=== PATIENT | male | born 1965 | race Caucasian/White ===

== ENCOUNTER 2017-04-09 02:47 | Emergency (ER) | payer MEDICAID ==
[~2017-04-09] VITALS: Ht 182.9 cm; Wt 95.3 kg
[2017-04-09 03:28] VITALS: BP 160/103
[2017-04-09] MEDS ORDERED: TETANUS-DIPTH-ACEL PERTUSSIS 0.5ML SYRG IM ONE (04:00)
[2017-04-09] MEDS ORDERED: MEPERIDINE HCL (50 MG/ML) 1 ML VIAL IM ONE (04:00)
[2017-04-09] MEDS ORDERED: ONDANSETRON ODT 4 MG TAB PO ONE (04:00)
[2017-04-09] MEDS ORDERED: LIDOCAINE 2%HCL (LOCAL ANESTH.) INJ 20ML MDV ONE (04:24)
[2017-04-09] MEDS ORDERED: cefTRIAXone SOD 1,000 MG VL ONE (05:44)
[2017-04-09] MEDS ORDERED: cefTRIAXone W LIDOCAINE 1 GM IM IM ONE (05:45)
[2017-04-09] MEDS ORDERED: LIDOCAINE 2%HCL (LOCAL ANESTH.) INJ 20ML MDV IJ ONE (06:00)
[2017-04-09] MEDS ORDERED: BACITRACIN TOP OINT 1 UD PKG TOP ONE (06:15)
== END 2017-04-09 06:31 | disposition home or self-care (01) ==
LOC: ER 02:50
DX: S61.214A Laceration without foreign body of right ring finger without damage to nail, initial encounter (principal); S62.604A Fracture of unspecified phalanx of right ring finger, initial encounter for closed fracture; F17.210 Nicotine dependence, cigarettes, uncomplicated; W20.8XXA Other cause of strike by thrown, projected or falling object, initial encounter; Y93.89 Activity, other specified; Y92.89 Other specified places as the place of occurrence of the external cause; Y99.8 Other external cause status
CPT/HCPCS: 12005; 73140; 90471; 90715; 96372; 99284; J0696; J2175; Q0162

== ENCOUNTER 2017-04-11 16:19 | Emergency (ER) | payer MEDICAID ==
[~2017-04-11] VITALS: Ht 182.9 cm; Wt 95.3 kg
[2017-04-11 16:45] VITALS: BP 143/68
== END 2017-04-11 20:55 | disposition home or self-care (01) ==
LOC: ER 16:22
DX: S61.214D Laceration without foreign body of right ring finger without damage to nail, subsequent encounter (principal); Z48.02 Encounter for removal of sutures

== ENCOUNTER 2024-05-21 07:59 | Inpatient (IN) | payer MEDICAID ==
[~2024-05-21] VITALS: Ht 180.3 cm; Wt 90.7 kg
--- NOTE | 2024-05-21 09:09 | ED.PDOC ---
Musculoskeletal HPI Comments 59 year old male presents to the ED with a chief complaint of bilateral foot pain onset 2 months. Patient states he has been experiencing bilateral foot pain with swelling for the past 2 months, worsening past 3 days. He noticed changes in color, dark purple/ red, LT foot is cold to touch with a burning sensation around the toes, RT foot is slightly more swollen than LT. He has been following up with Public Health Outreach Worker, with no diagnosis or treatment given. PMHx HTN. Denies chest pain, shortness of breath, fever, chills, nausea, vomiting, diarrhea, headache. No other symptoms or modifying factors present at this time. Chief Complaint: Lower Extremity Time Seen by MD: 08:48 Primary Care Provider: unknown Reviewed Notes: Medications, Allergies Allergies: Coded Allergies: NO KNOWN ALLERGIES (Unverified , 04/09/17) Information Source: Patient, Spouse Mode of Arrival: Ambulatory Location: Bilateral Extremity Location: Foot, Hand Timing: Months Prehospital treatment: None Severity: Moderate Able to Move Extremity: Yes Bear Weight: Limited Pain: Moderate Mechanism: Spontaneous Circumstances: Spontaneous Onset of Symptoms: Spontaneous Symptoms: Swelling, Pain, Erythema Associated signs and symptoms: Swelling, Hand pain, Foot pain Past Medical History PAST MEDICAL HISTORY: HTN, Denies Surgical History: Denies all surgeries Family History Family History: Unknown Social History Smoker: Cigarettes Alcohol: Denies ETOH Use Drugs: Denies Drug Use Lives In: Home Musculoskeletal: reports: others (bilateral feet swelling, pain, change in color ) Integumetry: reports: change in color Physical Exam General Appearance: No Apparent Distress, Normal HEENT: Normal ENT Inspection, Pharynx Normal, TMs Normal Neck: Full Range of Motion, Non-Tender, Normal, Normal Inspection Respiratory: Chest Non-Tender, Lungs Clear, No Accessory Muscle Use, No Respiratory Distress, Normal Breath Sounds Cardiovascular: No Edema, No JVD, No Murmur, No Gallop, Normal Peripheral Pulses, Regular Rate/Rhythm Breast Exam: Deferred Gastrointestinal: No Organomegaly, Non Tender, No Pulsatile Mass, Normal Bowel Sounds, Soft Genitalia: Deferred Pelvic: Deferred Rectal: Deferred Extremities: Slow capillary refill (bilateral hands and feet) Musculoskeletal : Apperance: Normal Neurologic: Alert, customer engagement manager II-XII nml as Tested, No Motor Deficits, Normal Affect, Normal Mood, No Sensory Deficits Cerebellar Function: Normal Reflexes: Normal Skin: Dry, Normal Color, Warm Lymphatic: No Adenopathy Was a procedure done? Was a procedure done?: No Differential Diagnosis EXT Differential Diagnosis: Cellulitis, Deep Vein Thrombosis, Other (Vascular issue) X-Ray, Labs, Meds, VS Vital Signs Date Time Temp Pulse Resp B/P (MAP) Pulse Ox O2 Delivery O2 Flow Rate FiO2 05/21/24 10:02 98.1 108 18 144/102 (116) 93 98.1 05/21/24 10:00 108 18 97 Room Air* 0 21 05/21/24 08:27 98.8 111 18 147/93 (111) 95 98.8 Lab Test 05/21/24 09:52 Range/Units White Blood Count 6.6 4.4-10.8 10^3/uL Red Blood Count 5.75 4.5-5.90 10^6/uL Hemoglobin 18.4 H 13.5-17.5 g/dL Hematocrit 53.3 H 41.0-53.0 % Mean Corpuscular Volume 92.7 80.0-100.0 fL Mean Corpuscular Hemoglobin 32.0 28.0-32.0 pg Mean Corpuscular Hemoglobin Concent 34.5 32.0-36.0 g/dL Red Cell Distribution Width 14.6 H 11.8-14.3 % Platelet Count 301 140-450 10^3/uL Mean Platelet Volume 7.2 6.9-10.8 fL Neutrophils (%) (Auto) 72.3 37.0-80.0 % Lymphocytes (%) (Auto) 15.7 10.0-50.0 % Monocytes (%) (Auto) 9.4 0.0-12.0 % Eosinophils (%) (Auto) 1.6 0.0-7.0 % Basophils (%) (Auto) 1.0 0.0-2.0 % Neutrophils # (Auto) 4.8 1.6-8.6 10 ^3/uL Lymphocytes # (Auto) 1.0 0.4-5.4 10 ^3/uL Monocytes # (Auto) 0.6 0-1.3 10 ^3/uL Eosinophils # (Auto) 0.1 0-0.8 10 ^3/uL Basophils # (Auto) 0.1 0-0.2 10 ^3/uL Nucleated Red Blood Cells 0.3 % Prothrombin Time 11.0 9.3-11.8 sec Prothrombin Time INR 1.04 0.9-1.15 Activated Partial Thromboplast Time 27.9 24.5-34.5 SEC Sodium Level 138 136-145 mmol/L Potassium Level 4.3 3.5-5.1 mmol/L Chloride Level 106 98-107 mmol/L Carbon Dioxide Level 25 20-31 mmol/L Anion Gap 7 5-15 Blood Urea Nitrogen 16 9-23 mg/dL Creatinine 1.09 0.700-1.30 mg/dL Glomerular Filtration Rate Calc 78 >90 mL/min BUN/Creatinine Ratio 14.7 10.0-20.0 Serum Glucose 87 74-106 mg/dL Calcium Level 9.9 8.7-10.4 mg/dL Troponin I High Sensitivity 5 </=54 ng/L [place] [id number] Ph: [phone] DIAGNOSTIC IMAGING Diagnostic Imaging Report : [id number] Signed PATIENT: WILLIAM MITCHELL ACCT: [id number] UNIT: [id number] : 1965 LOC: ER ROOM / BED: / AGE / SEX: 59 / M ADM STATUS: REG ER SERVICE [id number] ORDERING PHYSICIAN: LILI MEYER MD PROCEDURE(s): CXRP - CHEST PORTABLE REASON: extremity decreased perfusion ORDER NUMBER(s): [id number], ACCESSION NUMBER(s): [id number] EXAM: XY CHEST PORTABLE Indication: extremity decreased perfusion Technique: Single frontal view of the chest was obtained Comparison: None FINDINGS: Lines and Tubes: None Lungs: No focal consolidation. Pleura: No effusion. No pneumothorax. Cardiomediastinal contours: Unremarkable Bones: No acute osseous abnormality. IMPRESSION: No acute cardiopulmonary disease. ATED BY: TAYLER PEREZ MD DICTATED DATE/TIME: 05/21/241055 SIGNED BY: TAYLER PEREZ MD SIGNED DATE/TIME: 05/21/241055 CC: Time of 1ST Reevaluation: 09:18 Reevaluation 1ST: Unchanged Patient Education/Counseling: Diagnosis, Treatment, Prognosis Family Education/Counseling: Diagnosis, Treatment, Prognosis Additional Information The following tests were ordered, and results were reviewed by me: PTPTT, BMP, CBC, TROP, XY CHEST, CT ANGIO LOWER EXTREMITY W CON Additional Information was gathered from interviewing the following independent historians: I reviewed and agreed with the following test results read by other providers: XY CHEST, CT ANGIO LOWER EXTREMITY W CON I discussed treatment and results with medical personnel and: Patient, Comprehensive systems review obtained and negative except for what is stated in the HPI. Departure 1 Departure Time of Disposition: 12:46 (Patient with worsening pain and what appears to be decreased circulation to his lower extremities. We will admit patient for further workup and expert consultation) Impression: Primary Impression: Lower extremity pain Qualified Codes: M79.604 - Pain in right leg; M79.605 - Pain in left leg Disposition: ADMITTED INPATIENT Admit to: Med Surg Condition: Guarded Critical Care Note Critical Care Time?: No Stability Stability form required: No I personally scribed for LILI MEYER MD ([email or web address]) on 05/21/24 at 09:09. Electronically submitted by Anna Quintero ([email or web address]). I personally scribed for LILI MEYER MD ([email or web address]) on 05/21/24 at 09:22. Electronically submitted by Anna Quintero ([email or web address]). I personally scribed for LILI MEYER MD ([email or web address]) on 05/21/24 at 09:35. Electronically submitted by Anna Quintero ([email or web address]). I personally scribed for LILI MEYER MD ([email or web address]) on 05/21/24 at 11:14. Electronically submitted by Anna Quintero ([email or web address]). LILI MEYER MD May 21, 2024 09:09
[2024-05-21 10:00] VITALS: PULSE 108; RESP 18; O2SAT 97
[2024-05-21 10:47] LABS: Basophils # (auto) 0.1 10 ^3/uL (0-0.2); Eosinophils # (auto) 0.1 10 ^3/uL (0-0.8); Monocytes # (auto) 0.6 10 ^3/uL (0-1.3); Neutrophils # (auto) 4.8 10 ^3/uL (1.6-8.6)
[2024-05-21 10:49] LABS: Chloride 106 mmol/L (98-107); Potassium 4.3 mmol/L (3.5-5.1); Sodium 138 mmol/L (136-145)
[2024-05-21 10:50] LABS: Anion Gap 7 (5-15); Calcium 9.9 mg/dL (8.7-10.4); Carbon Dioxide 25 mmol/L (20-31)
[2024-05-21 10:51] LABS: Eosinophils % (auto) 1.6 % (0.0-7.0); Hematocrit 53.3 % (41.0-53.0); Hemoglobin 18.4 g/dL (13.5-17.5); Lymphocytes % (auto) 15.7 % (10.0-50.0); Mean Corpuscular Hgb Conc. 34.5 g/dL (32.0-36.0); Mean Corpuscular Volume 92.7 fL (80.0-100.0); Monocytes % (auto) 9.4 % (0.0-12.0); Neutrophils % (auto) 72.3 % (37.0-80.0); Nucleated Red Blood Cells % 0.3 %; Platelet Count (auto) 301 10^3/uL (140-450); Red Blood Cells 5.75 10^6/uL (4.5-5.90); Red Cell Distribution Width 14.6 % (11.8-14.3); White Blood Cell 6.6 10^3/uL (4.4-10.8)
[2024-05-21 10:55] LABS: BUN/Creatinine Ratio 14.7 (10.0-20.0); Blood Urea Nitrogen 16 mg/dL (9-23); Glucose 87 mg/dL (74-106)
--- NOTE | 2024-05-21 10:58 | DVH ---
EXAM: XY CHEST PORTABLE Indication: extremity decreased perfusion Technique: Single frontal view of the chest was obtained Comparison: None FINDINGS: Lines and Tubes: None Lungs: No focal consolidation. Pleura: No effusion. No pneumothorax. Cardiomediastinal contours: Unremarkable Bones: No acute osseous abnormality. IMPRESSION: No acute cardiopulmonary disease.
[2024-05-21 11:03] LABS: INR 1.04 (0.9-1.15); Partial Thromboplastin Time 27.9 SEC (24.5-34.5)
[2024-05-21] MEDS: IOHEXOL 350 MG/ML 100ML IJ ONE (11:21)
--- NOTE | 2024-05-21 12:28 | DVH ---
Examination: CT CT ANGIO LOWER EXTREMITY W CLINICAL HISTORY: bilateral decreased circulation to lower extremities Comparison: None Technique: Using helical technique, CT data from the lower abdomen through the toes was obtained duri ng rapid IV contrast infusion of 100 cc Omni 350. The examination was timed to the arterial system to generate a CT angiographic study. 3D images were generated at an independent work station. Dose redu ction techniques included automated exposure control. Radiation Dose Information: CT Dose: CTDI volume is 31 mGy. Dose-length product is 1541 mGy*cm Findings: Limited by poor contrast opacification of the arterial system and motion artifact. Abdominal aorta: Normal caliber, patent WENDY: Patent Right lower extremity: Common iliac artery: Patent External iliac artery: Patent Internal iliac artery: Patent Common femoral artery: Patent Profunda femoral artery: Patent Superficial femoral artery: Patent Popliteal artery: Patent Anterior tibial artery: Patent Peroneal tibial trunk: Patent Peroneal artery: Patent Posterior tibial artery: Patent Dorsalis pedis artery: Patent Left lower extremity: Common iliac artery: Patent External iliac artery: Patent Internal iliac artery: Patent Common femoral artery: Patent Profunda femoral artery: Patent Superficial femoral artery: Patent Popliteal artery: Patent Anterior tibial artery: Patent Peroneal tibial trunk: Patent Peroneal artery: Patent Posterior tibial artery: Patent Dorsalis pedis artery: Patent Pelvis: GI System: Visualized bowel appears unremarkable. Appendix is not definitely identified. Lymph nodes: No lymphadenopathy. Peritoneal cavity and surface: No free fluid. No pneumoperitoneum. Soft Tissues: Normal. Reproductive Organs: Normal. Bones: No acute fracture or aggressive osseous lesion. Impression: Vascular: 1. Limited by poor opacification of the arterial system and motion artifact. No definite hemodynamica lly significant stenosis identified. Right Lower Extremity: 1. Patent inflow 2. Patent outflow 3. Patent 3 vessel runoff Left Lower Extremity: 1. Patent inflow 2. Patent outflow 3. Patent 3 vessel runoff Abdomen/Pelvis: 1. No acute pelvic process. HS:Y
--- NOTE | 2024-05-21 14:54 | DVHHP2 ---
History of Present Illness Reason for Visit: Bilateral foot pain History of Present Illness 59-year-old male past medical history hypertension calcaneus fracture is seeing Podiatry outpatient chief complaint patient states he has been having left foot redness and pain he has been going on for two months now and he has some swel ling. But in the last three days his symptoms got so severe that he had come to the ER for evaluation he states that he has been having some dark purple color to his toes and severe pain in his foot has been feeling with cold feeling and a lot of burning aching sensation to his foot and toes. Patient denies any calf pain no chest pain no shortness with the breath no headache no dizziness. Patient has not seen a vascular surgeon for his issues. When evaluating patient's labs and imaging hemoglobin was 18.4 55.3 otherwise CBC was unremarkable CMP unremarkable troponin was negative CT angio appears without occlusion but we will order vascular consult chest x-ray unremarkable. With these findings we will admit. and ask for vascular consult Past Medical History Hypertension Past Surgical History Calcaneus fracture Family History Reviewed, non-contributory to the management of this case. Past Social History Patient was currently smoking denies drug or alcohol use Review of Systems Constitutional: No: Fever, Chills, Sweats, Weakness, Malaise, Other Eyes: No: Pain, Vision change, Conjunctivae inflammation, Eyelid inflammation, Other, Redness ENT: No: Ear pain, Ear discharge, Nose pain, Nose discharge, Nose congestion, Mouth pain, Mouth swelling, Throat pain, Throat swelling, Other Respiratory: No: Cough, Dry, Shortness of breath, SOB with excertion, Wheezing, Hemoptysis, Pleuritic Pain, Sputum, Wheezing, Other Cardiovascular: No: Chest Pain, Palpitations, Orthopnea, Paroxysmal Noc. Dyspnea, Edema, Lt Headedness, Other Gastrointestinal: No: Nausea, Vomiting, Abdominal Pain, Diarrhea, Constipation, Melena, Hematochezia, Other Genitourinary: No Dysuria, No Frequency, No Incontinence, No Hematuria, No Retention, No Other Musculoskeletal: leg pain, foot pain; No: other, neck pain, shoulder pain, arm pain, back pain, hand pain Skin: No: Rash, Lesions, Jaundice, Bruising, Other Neurological: No: Weakness, Numbness, Incoordination, Change in speech, Confusion, Seizures, Other Allergies: Coded Allergies: NO KNOWN ALLERGIES (Unverified , 04/09/17) Exam Vital Signs Vital Signs Date Time Temp Pulse Resp B/P (MAP) Pulse Ox O2 Delivery O2 Flow Rate FiO2 05/21/24 10:02 98.1 108 18 144/102 (116) 93 98.1 05/21/24 10:00 Room Air* 0 21 General Appearance: Alert, Oriented X3, Cooperative, No acute distress HEENT: Atraumatic, PERRLA, EOMI, Mucous membr. moist/pink Respiratory: Clear to auscultation, Normal air movement Cardiovascular: Regular rate, Normal S1, Normal S2, No murmurs Abdominal: Normal bowel sounds, Soft, No tenderness, No hepatospenomegaly, No masses Extremities: No clubbing, Other (bilateral feet with erythema compartment soft nvi +silt +wiggle +pulse felt ) Skin: No breakdown, No significant lesion Neuro: Normal gait, Normal speech, Strength at 5/5 X4 ext, Normal tone, Sensation intact, Cranial nerves 3-12 NL Psych/Mental Status: Mental status NL, Mood NL Labs/Xrays Cxr unremarkable CT angio lower extremity shows no occlusion I reviewed labs, imaging CT scan abdomen pelvis, EKG and all diagnostic studies on this patient from ED records and the medical chart Labs Test 05/21/24 09:52 Range/Units White Blood Count 6.6 4.4-10.8 10^3/uL Red Blood Count 5.75 4.5-5.90 10^6/uL Hemoglobin 18.4 H 13.5-17.5 g/dL Hematocrit 53.3 H 41.0-53.0 % Mean Corpuscular Volume 92.7 80.0-100.0 fL Mean Corpuscular Hemoglobin 32.0 28.0-32.0 pg Mean Corpuscular Hemoglobin Concent 34.5 32.0-36.0 g/dL Red Cell Distribution Width 14.6 H 11.8-14.3 % Platelet Count 301 140-450 10^3/uL Mean Platelet Volume 7.2 6.9-10.8 fL Neutrophils (%) (Auto) 72.3 37.0-80.0 % Lymphocytes (%) (Auto) 15.7 10.0-50.0 % Monocytes (%) (Auto) 9.4 0.0-12.0 % Eosinophils (%) (Auto) 1.6 0.0-7.0 % Basophils (%) (Auto) 1.0 0.0-2.0 % Neutrophils # (Auto) 4.8 1.6-8.6 10 ^3/uL Lymphocytes # (Auto) 1.0 0.4-5.4 10 ^3/uL Monocytes # (Auto) 0.6 0-1.3 10 ^3/uL Eosinophils # (Auto) 0.1 0-0.8 10 ^3/uL Basophils # (Auto) 0.1 0-0.2 10 ^3/uL Nucleated Red Blood Cells 0.3 % Prothrombin Time 11.0 9.3-11.8 sec Prothrombin Time INR 1.04 0.9-1.15 Activated Partial Thromboplast Time 27.9 24.5-34.5 SEC Sodium Level 138 136-145 mmol/L Potassium Level 4.3 3.5-5.1 mmol/L Chloride Level 106 98-107 mmol/L Carbon Dioxide Level 25 20-31 mmol/L Anion Gap 7 5-15 Blood Urea Nitrogen 16 9-23 mg/dL Creatinine 1.09 0.700-1.30 mg/dL Glomerular Filtration Rate Calc 78 >90 mL/min BUN/Creatinine Ratio 14.7 10.0-20.0 Serum Glucose 87 74-106 mg/dL Calcium Level 9.9 8.7-10.4 mg/dL Troponin I High Sensitivity 5 </=54 ng/L Assessment/Plan Assessment/Plan acute bilateral foot pain acute left foot discoloration ct scan lower ext no occlusion ordered morphine as needed for pain ordered gabapentin ordered vascular consult fu results elevate to help with swelling ordered ceftriaxone for now ordered lovenox for now ordered us to eval for dvt fu results smoker enc abstinence chronic problem htn calcaneus fx seeing by podiatry outpt fen/ppx diet ivf lovenox no gi ppx since hx of gerds or gi bleed plan admit to medicine Plan discussed with: Patient Date of Service: May 21, 2024 Billing Provider: HALIMA THOMPSON DNP Common Visit Codes: [id number] INP/OBS CARE (HIGH) HALIMA THOMPSON DNP May 21, 2024 14:54
[2024-05-21] MEDS ORDERED: NITROGLYCERIN 0.4 MG SL TAB SL PRN (15:45)
[2024-05-21] MEDS ORDERED: DOCUSATE SOD 100 MG CAP PO PRN (15:45)
[2024-05-21] MEDS ORDERED: MORPHINE SULFATE INJ 2 MG/ml SYRG IV PRN (15:45)
[2024-05-21] MEDS ORDERED: ONDANSETRON HCL 4 MG/2 ML VIAL IV PRN (15:45)
[2024-05-21] MEDS: ENOXAPARIN SOD 40 MG/0.4 ML SYRINGE SC SCH (16:59)
[2024-05-21] MEDS: SODIUM CHLORIDE 0.9% 1,000 ML IV SCH (17:37)
[2024-05-21] MEDS: cefTRIAXone 1GM/50ML D5W 50 ML IV ONE (21:15)
[2024-05-21 21:22] LABS: Erythrocyte Sedimentation Rate 1 mm/hr (0-20)
[2024-05-21] MEDS: GABAPENTIN 300 MG CAP PO SCH (21:41)
[2024-05-21 21:56] VITALS: BP 131/87; PULSE 94; RESP 18; TEMP 97.3; O2SAT 97
--- NOTE | 2024-05-21 23:20 | DVH ---
Bilateral lower extremity venous duplex Clinical History: eval for dvt to ble Comparison: None Technique: Duplex Doppler evaluation of the deep venous systems of both lower extremities from the common femora l veins to the popliteal veins including color Doppler and spectral/pulsed waveform analysis was perf ormed. Findings: RIGHT SIDE: The common femoral vein demonstrates appropriate compressibility and waveform variability. There is compressibility/patency of the great saphenous vein at the proximal thigh. The femoral vein demonstrates appropriate compressibility and waveform variability. The deep femoral vein demonstrates appropriate compressibility and waveform variability. The popliteal vein demonstrates appropriate compressibility and waveform variability. There is normal compressibility at the tibioperoneal trunk. LEFT SIDE: The common femoral vein demonstrates appropriate compressibility and waveform variability. There is compressibility/patency of the great saphenous vein at the proximal thigh. The femoral vein demonstrates appropriate compressibility and waveform variability. The deep femoral vein demonstrates appropriate compressibility and waveform variability. The popliteal vein demonstrates appropriate compressibility and waveform variability. There is normal compressibility at the tibioperoneal trunk. Impression: No evidence of right or left femoropopliteal venous thrombosis. Possible mild bilateral inguinal lymphadenopathy.
[2024-05-21 23:54] VITALS: BP 131/87; PULSE 94; RESP 18; TEMP 97.3; O2SAT 97
[2024-05-22 06:57] LABS: Eosinophils # (auto) 0.3 10 ^3/uL (0-0.8); Lymphocytes # (auto) 1.3 10 ^3/uL (0.4-5.4); Monocytes # (auto) 0.5 10 ^3/uL (0-1.3); Neutrophils # (auto) 3.6 10 ^3/uL (1.6-8.6); White Blood Cell 5.7 10^3/uL (4.4-10.8)
[2024-05-22 07:00] LABS: Alanine Aminotransferase 23 U/L (7-40); Alkaline Phosphatase 61 U/L (46-116); Anion Gap 6 (5-15); BUN/Creatinine Ratio 16.2 (10.0-20.0); Basophils # (auto) 0 10 ^3/uL (0-0.2); Basophils % (auto) 0.8 % (0.0-2.0); Bilirubin, Total 0.6 mg/dL (0.2-1.0); Blood Urea Nitrogen 18 mg/dL (9-23); Calcium 9.6 mg/dL (8.7-10.4); Carbon Dioxide 27 mmol/L (20-31); Chloride 105 mmol/L (98-107); Eosinophils % (auto) 5.3 % (0.0-7.0); Glucose 100 mg/dL (74-106); Hematocrit 51.4 % (41.0-53.0); Hemoglobin 17.9 g/dL (13.5-17.5); Lymphocytes % (auto) 21.9 % (10.0-50.0); Mean Corpuscular Hemoglobin 32.2 pg (28.0-32.0); Mean Corpuscular Hgb Conc. 34.8 g/dL (32.0-36.0); Mean Corpuscular Volume 92.5 fL (80.0-100.0); Monocytes % (auto) 8.9 % (0.0-12.0); Neutrophils % (auto) 63.1 % (37.0-80.0); Nucleated Red Blood Cells % 0.9 %; Platelet Count (auto) 261 10^3/uL (140-450); Red Blood Cells 5.55 10^6/uL (4.5-5.90); Red Cell Distribution Width 14.4 % (11.8-14.3); Sodium 138 mmol/L (136-145); Total Protein 6.1 g/dL (5.7-8.2)
[2024-05-22 07:05] LABS: Aspartate Aminotransferase 12 U/L (13-40)
[2024-05-22] MEDS: cefTRIAXone 1GM/50ML D5W 50 ML IV SCH (09:09)
[2024-05-22 10:45] LABS: Hepatitis B Surface Antigen Negative (Negative); Hepatitis C Antibody Negative (Negative)
--- NOTE | 2024-05-22 15:29 | DVHDS2 ---
Discharge Summary Date of Admission May 21, 2024 at 15:44 Date of Discharge: May 22, 2024 Admitting Diagnosis Bilateral foot pain Labs/Diagnostic Data: Laboratory Results Test 05/22/24 06:20 05/21/24 09:52 White Blood Count 5.7 10^3/uL (4.4-10.8) Red Blood Count 5.55 10^6/uL (4.5-5.90) Hemoglobin 17.9 g/dL (13.5-17.5) Hematocrit 51.4 % (41.0-53.0) Mean Corpuscular Volume 92.5 fL (80.0-100.0) Mean Corpuscular Hemoglobin 32.2 pg (28.0-32.0) Mean Corpuscular Hemoglobin Concent 34.8 g/dL (32.0-36.0) Red Cell Distribution Width 14.4 % (11.8-14.3) Platelet Count 261 10^3/uL (140-450) Mean Platelet Volume 7.0 fL (6.9-10.8) Neutrophils (%) (Auto) 63.1 % (37.0-80.0) Lymphocytes (%) (Auto) 21.9 % (10.0-50.0) Monocytes (%) (Auto) 8.9 % (0.0-12.0) Eosinophils (%) (Auto) 5.3 % (0.0-7.0) Basophils (%) (Auto) 0.8 % (0.0-2.0) Neutrophils # (Auto) 3.6 10 ^3/uL (1.6-8.6) Lymphocytes # (Auto) 1.3 10 ^3/uL (0.4-5.4) Monocytes # (Auto) 0.5 10 ^3/uL (0-1.3) Eosinophils # (Auto) 0.3 10 ^3/uL (0-0.8) Basophils # (Auto) 0 10 ^3/uL (0-0.2) Nucleated Red Blood Cells 0.9 % Sodium Level 138 mmol/L (136-145) Potassium Level 5.0 mmol/L (3.5-5.1) Chloride Level 105 mmol/L (98-107) Carbon Dioxide Level 27 mmol/L (20-31) Anion Gap 6 (5-15) Blood Urea Nitrogen 18 mg/dL (9-23) Creatinine 1.11 mg/dL (0.700-1.30) Glomerular Filtration Rate Calc 76 mL/min (>90) BUN/Creatinine Ratio 16.2 (10.0-20.0) Serum Glucose 100 mg/dL (74-106) Calcium Level 9.6 mg/dL (8.7-10.4) Total Bilirubin 0.6 mg/dL (0.2-1.0) Aspartate Amino Transferase (AST) 12 U/L (13-40) Alanine Aminotransferase (ALT) 23 U/L (7-40) Alkaline Phosphatase 61 U/L (46-116) Total Protein 6.1 g/dL (5.7-8.2) Albumin 4.0 g/dL (3.2-4.8) Hepatitis B Surface Antigen Negative (Negative) Hepatitis C Antibody Negative (Negative) Erythrocyte Sedimentation Rate 1 mm/hr (0-20) Prothrombin Time 11.0 sec (9.3-11.8) Prothrombin Time INR 1.04 (0.9-1.15) Activated Partial Thromboplast Time 27.9 SEC (24.5-34.5) Troponin I High Sensitivity 5 ng/L (</=54) C-Reactive Protein High Sensitivity 0.35 mg/dL (<1.0) Other Laboratory Tests 05/22/24 06:20 Brief Hx & Hospital Course: History of Present Illness 59-year-old male past medical history hypertension calcaneus fracture is seeing Podiatry outpatient chief complaint patient states he has been having left foot redness and pain he has been going on for two months now and he has some swelling. But in the last three days his symptoms got so severe that he had come to the ER for evaluation he states that he has been having some dark purple color to his toes and severe pain in his foot has been feeling with cold feeling and a lot of burning aching sensation to his foot and toes. Patient denies any calf pain no chest pain no shortness with the breath no headache no dizziness. Patient has not seen a vascular surgeon for his issues. When evaluating patient's labs and imaging hemoglobin was 18.4 55.3 otherwise CBC was unremarkable CMP unremarkable troponin was negative CT angio appears without occlusion but we will order vascular consult chest x-ray unremarkable. With these findings we will admit. and ask for vascular consult. Course of hospitalization: Patient had vascular surgery consultation. Patient had CT runoff to lower extremities. Patient was decided to leave [facility] before being seen by any providers today or being counseled. Condition at Discharge: Undetermined Final Diagnosis/Problems List Rule out peripheral arterial disease, questionable limb ischemia Discharge Disposition: [facility] Discharge Statement: "Patient was advised to return to the ER or call 911 if any headaches, dizziness, shortness of breath, chest pain, abdominal pain, bleeding, fevers, or worsening of medical condition. Patient was counseled about treatment plan, medications, possible side effects, patientverbalized understanding. All questions were answered to the best of my ability. This discharge took greater then 30 minutes in planning, reviewing documentation, counseling the patient, and discussing with other team members." ASSESSMENT ASSESSMENT Assessment Date of Service: May 22, 2024 Billing Provider: MERCEDEZ MOODY NP Common Visit Codes: [id number] INP/OBS CARE(HIGH) MERCEDEZ MOODY NP May 22, 2024 15:29
== END 2024-05-22 11:25 | disposition left against medical advice (07) | DRG 197 ==
LOC: ER 07:59 → OVERFLOW 15:44
PROVIDERS: ADMIT Nurse Practitioner Acute Care; ATTEND Nurse Practitioner Acute Care
DX: I70.222 Atherosclerosis of native arteries of extremities with rest pain, left leg (principal); F17.210 Nicotine dependence, cigarettes, uncomplicated; Z53.29 Procedure and treatment not carried out because of patient's decision for other reasons; I10 Essential (primary) hypertension; Z79.899 Other long term (current) drug therapy
CPT/HCPCS: 36415; 71045; 73706; 80048; 80053; 84484; 85025; 85610; 85652; 85730; 86141; 86803; 87340; 93970; G0378

== ENCOUNTER 2025-02-11 07:57 | Day surgery (SDC) | payer MEDICAID ==
[~2025-02-11] VITALS: Ht 182.9 cm; Wt 90.7 kg
[~2025-02-11 07:57] MED LIST: OLME5TAB24 PO
[2025-02-11] MEDS ORDERED: ETOMIDATE (2MG/ML) 10ML VIAL IV ONE (07:58)
[2025-02-11] MEDS ORDERED: HYDROmorphone HCL 2 MG/ML VL/or syr IV ONE (07:58)
[2025-02-11] MEDS ORDERED: ROCURONIUM 10MG/ML 10ML VIAL IV ONE (07:58)
[2025-02-11] MEDS ORDERED: MEPERIDINE HCL (25 MG/ML) 1ML VIAL IV ONE (07:58)
[2025-02-11] MEDS ORDERED: BUPIVACAINE HCL 50 ML ONE (10:01)
[2025-02-11] MEDS ORDERED: SUCCINYLCHOLINE CHLORIDE 20 MG/ML 10ML VIAL IV ONE (10:02)
[2025-02-11] MEDS: ceFAZolin 2 GM/D5W50ml 50 ML IV ONE (10:36)
[2025-02-11] MEDS: ROPIVACAINE 0.5% (5MG/ML) 20ML AMPULE IJ ONE (12:38)
[2025-02-11 13:19] VITALS: PULSE 69; RESP 12; TEMP 97.1
[2025-02-11] MEDS ORDERED: HYDROmorphone HCL 2 MG/ML VL/or syr IV PRN (13:30)
[2025-02-11] MEDS ORDERED: METOCLOPRAMIDE HCL 5MG/ml INJ 2ml VIAL IV PRN (13:30)
[2025-02-11] MEDS ORDERED: MEPERIDINE HCL (25 MG/ML) 1ML VIAL IV PRN (13:30)
[2025-02-11] MEDS ORDERED: ACETAMINOPHEN IV 1000 MG/100ML (10MG/ML) IV PRN (13:30)
[2025-02-11] MEDS ORDERED: ONDANSETRON HCL 4 MG/2 ML VIAL IV PRN (13:30)
[2025-02-11 13:49] VITALS: PULSE 73; RESP 12
[2025-02-11 14:04] VITALS: PULSE 78; RESP 12
[2025-02-11 14:34] VITALS: BP 125/94; PULSE 79; RESP 12; O2SAT 96
[2025-02-11 14:59] VITALS: RESP 12
--- NOTE | 2025-02-11 17:42 | DVHOP ---
DATE OF SURGERY: 02/11/2025 PREOPERATIVE DIAGNOSIS: Right shoulder rotator cuff tear. POSTOPERATIVE DIAGNOSIS: Right shoulder rotator cuff tear with biceps tendon tear. PROCEDURE PERFORMED: Right shoulder arthroscopy with rotator cuff repair using double-row technique, extensive synovial debridement, proximal biceps tendon tenodesis, subacromial decompression. The procedure qualifies for a modified 22 due to extensive time and effort spent for a massive rotator cuff tear with collagen augmentation and subscapularis repair. 100% extra time and efforts were needed. CERTIFIED WELLNESS PROGRAM COORDINATOR: Shraddha Welsh PA-C. BLOOD LOSS: Minimal. ANESTHESIA: General with interscalene block. IMPLANTS USED: Arthrex FiberTak x2, Ossio anchor x2, collagen augment Rotium x1. INDICATION FOR PROCEDURE: The patient is a 59-year-old male who presented to the clinic with a history of bilateral shoulder pain. Clinical and radiologic evaluation demonstrated complete tear bilaterally with mild atrophy on the right side and moderate atrophy of the rotator cuff on the left side. After thorough discussion, we decided to move ahead with right shoulder arthroscopy and rotator cuff repair as he had failed nonoperative management. It was mentioned that the tear is fairly large and it may not be repairable. It may need collagen augment and this was kept standby. It was also mentioned that this gentleman has high rate of failure, might necessitate other options such as reverse shoulder arthroplasty or tendon transfer. Pros and cons were discussed with benefits, risks, benefits, and treatment alternatives. We discussed the risks, benefits, and complications of the surgery, neurovascular injury, infection, arthrofibrosis, loss of limb or life were discussed. The patient decided to proceed with a surgical option. PROCEDURE IN DETAIL: The patient was identified in the preoperative holding area and the surgical site was marked. The consent was verified. He was brought into the operating room and placed supine on the operating table. General anesthesia was inserted. Intravenous antibiotics were given. The external area was prepped and draped in the usual sterile manner. Time was called out to confirm the anesthesia, the nature of surgery, the site of surgery, availability of implants, x-rays, and allergies to medications. He was in a beach chair position. All the bony prominences were appropriately padded. A standard posterior portal was established. The scope was inserted. An anterior portal was established and a probe was inserted and the findings were as follows: * Large to massive rotator cuff tear with significant retraction. * Upper third subscapularis tear with retraction. * Significant fraying and tear of the proximal biceps tendon. 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 * Degenerative labral tears. * No loose bodies. Based on the findings, I decided to do extensive synovial debridement of the labrum, of the rotator cuff, of the biceps tendon, and the bursa. Next, the subscapularis tendon tear was fixed. For this, an anterior cannula was inserted. Next, a Scorpion suture passer was inserted with 2 sutures passed around the upper third of the subscapularis. The punch was then inserted onto the lesser tuberosity. Next, these 2 sutures were inserted into the rotator cuff anchor and this was inserted into the hole. Excellent fixation was noted of the subscapularis. Subacromial space was entered. It was noted that the tear was a large tear with anterior half of the infraspinatus and the supraspinatus completely torn. Supraspinatus retraction was all the way up to the glenoid. Extensive releases had to be done. Tissue quality was considered to be poor. Extensive scarring was also noted. This was carefully released. Significant time and efforts were spent in this procedure to do extensive releases and almost 100% extra time was needed for this procedure and the subsequent procedures, which were equally difficult. Looking at the tear configuration, I decided to start with one [id number] suture. The infraspinatus anterior half was stitched to the supraspinatus posterior half. Next, two all-suture anchors were used for the medial row. Additional percutaneous portal was made. The drill guide was inserted and both anchors were inserted. These were both double-loaded. The scope was in the lateral portal with additional anterolateral portal established for the cannula and for the instrumentation. The sutures were sequentially passed from posterior to anterior direction. Two sutures were also now passed through the biceps tendon for biceps tenodesis. The biceps was now released from the superior labrum. Sutures were now sequentially tied. The posterior ones were tied first for anterior half of the infraspinatus and the posterior half of the supraspinatus and then the anterior ones were tied as well. For the supraspinatus, the tendon was reattached mainly back to the medial portion of the rotator cuff to avoid excessive tension by doing a double-row repair for this tissue. Of the infraspinatus, this was easily reducible and a double-row technique was done. Rotium collagen implant was inserted between the tendon and the footprint for additional biological augmentation given the chronic nature of the tear. This was carefully inserted and excellent positioning was noted. The sutures from the anterior portion of the anchor were now used for the double row as well as the one from the infraspinatus. These 4 sutures along with the biceps tendon sutures were inserted into the lateral row anchor. A punch was used to create a marine pilot hole. The biceps tendon was released off the superior labrum and along with the other sutures was inserted into the Ossio anchor. Excellent tenodesis was noted. Satisfactory repair was noted. Irrigation was given. Subacromial decompression was not considered necessary due to the extensive nature of the tear and the acromion was type II morphology. The skin incisions were closed with 3-0 nylon. Sterile dressing was applied. The arm was placed in an abduction brace with abduction up to 30 degrees. DISPOSITION: Good, the patient was extubated and taken to recovery without any complications. PLAN: Plan to stay in the brace at all times. He will need extensive immobilization for six weeks. Therapy to start only after six weeks. MD SAKINA Chamberlain/ED TID: [id number] RECEIPT: [id number]
== END 2025-02-11 14:59 | disposition home or self-care (01) ==
LOC: SUR 07:57
PROVIDERS: ATTEND Orthopaedic Surgery Sports Medicine
DX: M75.121 Complete rotator cuff tear or rupture of right shoulder, not specified as traumatic (principal); M94.211 Chondromalacia, right shoulder; S46.211A Strain of muscle, fascia and tendon of other parts of biceps, right arm, initial encounter; S43.431A Superior glenoid labrum lesion of right shoulder, initial encounter; I10 Essential (primary) hypertension; E78.5 Hyperlipidemia, unspecified; G47.39 Other sleep apnea; Z79.899 Other long term (current) drug therapy; Z98.890 Other specified postprocedural states; X58.XXXA Exposure to other specified factors, initial encounter; Y93.89 Activity, other specified; Y92.89 Other specified places as the place of occurrence of the external cause; Y99.8 Other external cause status
CPT/HCPCS: 29826; 29827; 29828; C1713; J0169; J0330; J0690; J1171; J2175; J2795; J3490; A4565